=== PATIENT | female | born 1970 | race Caucasian/White ===

== ENCOUNTER 2017-03-01 08:23 | Day surgery (SDC) | payer OTHER ==
[2017-02-27 14:13] VITALS: BMI 20.6
--- NOTE | 2017-03-01 06:32 | P.GSHP ---
History of Present Illness H&P Date: 03/01/17 CHIEF COMPLAINT: History of gas bloat and hiatal hernia. HISTORY OF PRESENT ILLNESS: Lucila Saenz is a 46 year-old female who was last seen in 2014. She was actually set to get an upper and lower endoscopy, however she chickened out. She has a strong family history of colon cancer. She also reports gas bloat and constipation. She is actively smoking; however, she reports cutting down in moderate amounts. She also has Raynaud's in the fingertips as well secondary to poor circulation. ROS Additionally reports: GI: Gastroesophageal reflux disease. Reports chronic constipation. CONSTITUTIONAL: No fevers or chills. Weight unchanged. HEENT: Denies any trouble with vision, hearing or nosebleeds. No difficulty swallowing. LYMPHATIC: The patient denies any lumps and bumps around the neck. ENDOCRINE: Denies any thyroid disorders. Denies any blood sugar glucose intolerance. RESPIRATORY: Denies pneumonia. Has troubles with breathing or dyspnea on exertion. Asthma. CARDIOVASCULAR: Denies any chest pain, palpitations, or recent heart attacks. GENITOURINARY: Denies any blood in urine or increased urinary frequency. MUSCULOSKELETAL: Denies any back pain, stiffness or joint arthritis. NEUROLOGIC: Denies any numbness or tingling along the distal extremities. No seizure disorders or headaches. PSYCHIATRIC: Denies any depression or suicidal ideation. HEMATOLOGIC: Denies any abnormal bleeding or bruising. BREASTS: Denies any breast lumps, pain or nipple discharge. Physical Exam Patient is a 46-year-old female. GENERAL: Well developed and in no acute distress. Pleasant. HEENT: No sclera icterus. Extraocular movements grossly intact. Moist buccal mucosa. Head is atraumatic, normocephalic. Hears conversational speech. No nasal drainage. NECK: Supple without lymphadenopathy. No JV distention. CHEST: Non-labored respirations and equal bilateral excursions. CARDIOVASCULAR: Regular rate and rhythm. Palpable 2+ radial pulses. ABDOMEN: Soft, distended. Nontender. MUSCULOSKELETAL: No clubbing, cyanosis or edema. NEUROLOGIC: No focal or lateralizing signs. PSYCH: Appropriate affect. Alert and oriented to person, place and time. Assessment / Plan ASSESSMENT: 1. History of gas bloat. 2. Hiatal hernia. 3. Gastroesophageal reflux disease. 4. Family history of colon cancer. PLAN: 1. I have recommended proceeding with an upper and lower endoscopy as she reports hiatal hernia and has family history of colon cancer, and changes in bowel habits. 2. I did go over tobacco cessation and counseling, as she has poor circulation with Raynaud's. Her increased inhalation will also increase her gas bloat as well. 3. I have recommended follow up upon completion of her studies. Past Medical History Past Medical History: COPD, GERD/Reflux, Hypertension Additional Past Medical History / Comment(s): "chronic pollution disease", hiatal hernia, raynauds syndrome, History of Any Multi-Drug Resistant Organisms: None Reported Past Surgical History: Orthopedic Surgery, Tubal Ligation Additional Past Surgical History / Comment(s): jorje and screws left leg Past Anesthesia/Blood Transfusion Reactions: No Reported Reaction Additional Past Anesthesia/Blood Transfusion Reaction / Comment(s): claustrophobia Smoking Status: Current every day smoker - Past Family History Father Family Medical History: Cancer Medications and Allergies Home Medications Medication Instructions Recorded Confirmed Type ALPRAZolam [Xanax] 0.5 mg PO BID PRN 02/27/17 02/27/17 History Albuterol Inhaler [Ventolin Hfa 2 puff INHALATION Q6HR PRN 02/27/17 02/27/17 History Inhaler] Albuterol Nebulized [Ventolin 2.5 mg INHALATION TID PRN 02/27/17 02/27/17 History Nebulized] Beclomethasone Dipropionate [Qvar 1 puff INHALATION BID 02/27/17 02/27/17 History 80 mcg] Cetirizine HCl [Zyrtec] 10 mg PO DAILY 02/27/17 02/27/17 History Cholecalciferol [Vitamin D3] 1,000 unit PO DAILY 02/27/17 02/27/17 History Citalopram Hydrobromide [CeleXA] 20 mg PO BID 02/27/17 02/27/17 History Naproxen [Naprosyn] 500 mg PO Q12HR PRN 02/27/17 02/27/17 History Nicotine Tube 4 mg IH DIRECTED PRN 02/27/17 02/27/17 History Omeprazole [PriLOSEC] 40 mg PO DAILY 02/27/17 02/27/17 History Potassium(Dose Unknown) 1 tab PO DAILY 02/27/17 02/27/17 History Salmeterol Xinafoate [Serevent 50 mcg IH BID MDD sob 02/27/17 02/27/17 History Diskus] Tiotropium [place] [Spiriva] 1 cap INHALATION DAILY 02/27/17 02/27/17 History amLODIPine [Norvasc] 5 mg PO DAILY 02/27/17 02/27/17 History traMADol HCL [Ultram] 50 mg PO Q12HR PRN 02/27/17 02/27/17 History traZODone HCL 100 mg PO HS 02/27/17 02/27/17 History Allergies Allergy/AdvReac Type Severity Reaction Status Date / Time No Known Allergies Allergy Verified 02/27/17 13:54
[~2017-03-01 08:23] MED LIST: LACTATED RINGERS 1,000 ML IV SCH
[2017-03-01] MEDS ORDERED: LIDOCAINE 1% 20 ML VIAL (10MG/ML) FOR IV START INTRADERMA ONE (09:12)
[2017-03-01 09:13] VITALS: TEMP 98.7
[2017-03-01] MEDS ORDERED: MIDAZOLAM 2 MG/2 ML VIAL ONE (09:20)
[2017-03-01] MEDS ORDERED: PROPOFOL 10 MG/ML 20 ML VIAL IV ONE (09:20)
[2017-03-01] MEDS ORDERED: fentaNYL (PF) 50 MCG/ML 2 ML AMP ONE (09:20)
--- NOTE | 2017-03-01 09:57 | P.PCN ---
Date of Procedure: 03/01/17 Preoperative Diagnosis: Postoperative Diagnosis: Procedure(s) Performed: Implants: Indications for Procedure: Operative Findings: Description of Procedure: PREOPERATIVE DIAGNOSIS: Gastroesophageal reflux disease. Epigastric abdominal pain. POSTOPERATIVE DIAGNOSIS: Esophagitis. Gastritis. Gastroesophageal reflux disease. Epigastric abdominal pain. Diaphragmatic hiatal hernia without obstruction. OPERATION: Esophagogastroduodenoscopy with biopsies along antrum and esophagus. SURGEON: Licha Olmstead MD ANESTHESIA: MAC. INDICATIONS: The patient is a 46-year-old female who presents with a history of reflux disease and epigastric abdominal pain. Benefits and risks of the procedure were described. Informed consent was obtained. DESCRIPTION: The patient was brought into the endoscopy suite and laid in the left lateral decubitus position. An Olympus gastroscope was passed along the posterior oropharynx down to the distal esophagus where the squamocolumnar junction was encountered at 41 cm from the incisors. The stomach was entered and no bile reflux was found. Additional findings are listed below. Biopsies with cold forceps were obtained of the antrum. The first through third portion of the duodenum was examined and unremarkable. Retroflexion of the scope confirmed Hill grade 3 lower esophageal valve. The squamocolumnar junction LA grade B erosive esophagitis. Moderate yeast was found throughout the entire length of the esophagus. The stomach was desufflated. The patient tolerated the procedure well. FINDINGS: Squamocolumnar junction 41 cm from the incisors. Diaphragmatic hiatus at 41 cm. Hill grade 3 lower esophageal valve. LA grade B erosive esophagitis. No active duodenitis. Yeast esophagitis. Chronic gastritis. RECOMMENDATIONS: Further recommendations pending results of pathology report. Upper endoscopy as needed.
--- NOTE | 2017-03-01 10:04 | P.PCN ---
Date of Procedure: 03/01/17 Preoperative Diagnosis: Postoperative Diagnosis: Procedure(s) Performed: Implants: Indications for Procedure: Operative Findings: Description of Procedure: PREOPERATIVE DIAGNOSIS: Colonoscopy screening, initial. POSTOPERATIVE DIAGNOSIS: Colonoscopy screening, initial. Diverticulosis, sigmoid colon. Tubular adenomas. External hemorrhoids. OPERATION: Colonoscopy to the ileocecal valve and appendiceal orifice. Colonoscopy with cold forceps biopsies. Colonoscopy with snare polypectomy. SURGEON: Licha Olmstead MD. ANESTHESIA: MAC. INDICATIONS: The patient is a 46-year-old female who presents for colonoscopy screening. Benefits and risks were described and informed consent was obtained. DESCRIPTION OF PROCEDURE: The patient had undergone Gatorade, MiraLAX and Dulcolax prep. She had been brought into the operating room and laid in the left lateral decubitus position. After adequate intravenous sedation, the rectum was examined with 2% lidocaine jelly. External hemorrhoids were encountered. The rectal tone was within normal limits. No lesions were palpated in the rectal vault. An Olympus colonoscope was advanced until the ileocecal valve and appendiceal orifice were clearly viewed. The prep was excellent with clear visualization of the mucosal folds. The scope was removed with visualization of each mucosal fold. Scattered diverticulosis was encountered. Tubular adenomas were found between 3 -4 mm treated with cold forceps biopsy as well as snare polypectomy at 30 cm and proximal including mid transverse colon. No evidence of focal colitis was found. Grade 3 internal hemorrhoids without active bleeding or inflammation were encountered. The colon was desufflated. The patient had tolerated the procedure well. Withdrawal time was over 6 minutes. FINDINGS: Internal hemorrhoids, grade 2. External prolapsed hemorrhoids. No arteriovenous malformations. Tubular adenomas were found between 3-4 mm treated with cold forceps biopsy as well as snare polypectomy at 30 cm and proximal including mid transverse colon. No focal colitis. RECOMMENDATIONS: Lower endoscopy in 3 years (2019) per screening guidelines. Plan - Discharge Summary New Discharge Prescriptions: New Fluconazole 200 mg PO DAILY #14 tab No Action traZODone HCL 100 mg PO HS traMADol HCL [Ultram] 50 mg PO Q12HR PRN PRN Reason: Pain Cetirizine HCl [Zyrtec] 10 mg PO DAILY Omeprazole [PriLOSEC] 40 mg PO DAILY Albuterol Nebulized [Ventolin Nebulized] 2.5 mg INHALATION TID PRN PRN Reason: sob Citalopram Hydrobromide [CeleXA] 20 mg PO BID amLODIPine [Norvasc] 5 mg PO DAILY Naproxen [Naprosyn] 500 mg PO Q12HR PRN PRN Reason: Pain Tiotropium [place] [Spiriva] 1 cap INHALATION DAILY Salmeterol Xinafoate [Serevent Diskus] 50 mcg IH BID MDD sob Cholecalciferol [Vitamin D3] 1,000 unit PO DAILY Beclomethasone Dipropionate [Qvar 80 mcg] 1 puff INHALATION BID Albuterol Inhaler [Ventolin Hfa Inhaler] 2 puff INHALATION Q6HR PRN PRN Reason: sob Potassium(Dose Unknown) 1 tab PO DAILY Nicotine Tube 4 mg IH DIRECTED PRN PRN Reason: Nicotine Cravings ALPRAZolam [Xanax] 0.5 mg PO BID PRN PRN Reason: Anxiety Discharge Medication List ALPRAZolam [Xanax] 0.5 mg PO BID PRN 02/27/17 [History] Albuterol Inhaler [Ventolin Hfa Inhaler] 2 puff INHALATION Q6HR PRN 02/27/17 [ History] Albuterol Nebulized [Ventolin Nebulized] 2.5 mg INHALATION TID PRN 02/27/17 [ History] Beclomethasone Dipropionate [Qvar 80 mcg] 1 puff INHALATION BID 02/27/17 [ History] Cetirizine HCl [Zyrtec] 10 mg PO DAILY 02/27/17 [History] Cholecalciferol [Vitamin D3] 1,000 unit PO DAILY 02/27/17 [History] Citalopram Hydrobromide [CeleXA] 20 mg PO BID 02/27/17 [History] Naproxen [Naprosyn] 500 mg PO Q12HR PRN 02/27/17 [History] Nicotine Tube 4 mg IH DIRECTED PRN 02/27/17 [History] Omeprazole [PriLOSEC] 40 mg PO DAILY 02/27/17 [History] Potassium(Dose Unknown) 1 tab PO DAILY 02/27/17 [History] Salmeterol Xinafoate [Serevent Diskus] 50 mcg IH BID MDD sob 02/27/17 [History] Tiotropium [place] [Spiriva] 1 cap INHALATION DAILY 02/27/17 [History] amLODIPine [Norvasc] 5 mg PO DAILY 02/27/17 [History] traMADol HCL [Ultram] 50 mg PO Q12HR PRN 02/27/17 [History] traZODone HCL 100 mg PO HS 02/27/17 [History] Fluconazole 200 mg PO DAILY #14 tab 03/01/17 [Rx] Follow up Appointment(s)/Referral(s): Licha Olmstead MD [STAFF PHYSICIAN] - 03/21/17 Patient Instructions/Handouts: Colorectal Polyps (GEN), Diverticulosis Diet ( GEN), Diverticulosis (GEN), Hemorrhoids (GEN) Activity/Diet/Wound Care/Special Instructions: Repeat colonoscopy 3 years, 2019. Discharge Disposition: HOME SELF-CARE
[2017-03-01 10:06] VITALS: RESP 16
[2017-03-01 10:35] VITALS: BP 131/88; PULSE 65
== END 2017-03-01 10:42 | disposition home or self-care (01) ==
LOC: ORWHC2ENDO 08:23
PROVIDERS: ATTEND Surgery Plastic and Reconstructive Surgery
DX: K44.9 Diaphragmatic hernia without obstruction or gangrene (principal); K21.0 Gastro-esophageal reflux disease with esophagitis; B37.81 Candidal esophagitis; K22.10 Ulcer of esophagus without bleeding; K63.5 Polyp of colon; K57.30 Diverticulosis of large intestine without perforation or abscess without bleeding; K64.2 Third degree hemorrhoids; K64.8 Other hemorrhoids; Z80.0 Family history of malignant neoplasm of digestive organs; K29.50 Unspecified chronic gastritis without bleeding; F17.200 Nicotine dependence, unspecified, uncomplicated; I73.00 Raynaud's syndrome without gangrene; J44.9 Chronic obstructive pulmonary disease, unspecified; I10 Essential (primary) hypertension; F32.9 Major depressive disorder, single episode, unspecified; F41.9 Anxiety disorder, unspecified; Z79.51 Long term (current) use of inhaled steroids; Z79.899 Other long term (current) drug therapy
CPT/HCPCS: 88305; 88342; 45380; 45385; 43239; J2250; J3010; J2704

== ENCOUNTER 2018-03-07 10:15 | Inpatient (IN) | payer OTHER ==
[2018-03-07] MEDS ORDERED: SODIUM CHLORIDE 0.9% 1,000 ML IV STA (11:09)
[2018-03-07] MEDS ORDERED: ONDANSETRON 4 MG/2 ML VIAL IVP STA (11:09)
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
--- NOTE | 2018-03-07 11:47 | XR ---
EXAMINATION TYPE: XR KUB DATE OF EXAM: 03/07/2018 COMPARISON: NONE HISTORY: Pain TECHNIQUE: Single supine KUB image of the abdomen is obtained FINDINGS: Small bowel demonstrates no evidence for dilatation or air fluid levels. Gas and fecal material is seen in non-distended colon. No convincing evidence for pneumoperitoneum. No unusual calcifications. The lung bases are clear. The osseous structures are intact. IMPRESSION: 1. Overall nonobstructive bowel gas pattern.
--- NOTE | 2018-03-07 11:47 | XR ---
EXAMINATION TYPE: XR chest 2V DATE OF EXAM: 03/07/2018 COMPARISON: NONE HISTORY: Chest pain TECHNIQUE: Frontal and lateral views of the chest are obtained. FINDINGS: There is no focal air space opacity. No evidence for pneumothorax. No pleural effusion. The cardiac silhouette size is within normal limits. The osseous structures are grossly intact. IMPRESSION: 1. No acute cardiopulmonary process.
[2018-03-07 12:23] LABS: ALT 51 U/L (9-52); AST 65 U/L (14-36); Albumin 4.9 g/dL (3.5-5.0); Alkaline Phosphatase 104 U/L (38-126); Amylase 51 U/L (30-110); Anion Gap 15 mmol/L; Blood Urea Nitrogen 9 mg/dL (7-17); Calcium 10.4 mg/dL (8.4-10.2); Carbon Dioxide 24 mmol/L (22-30); Chloride 87 mmol/L (98-107); Glucose 114 mg/dL (74-99); Lipase 73 U/L (23-300); Potassium 4.5 mmol/L (3.5-5.1); Sodium 126 mmol/L (137-145); Total Bilirubin 1.6 mg/dL (0.2-1.3); Total Protein 8.1 g/dL (6.3-8.2)
[2018-03-07 12:32] LABS: Basophils % (A) 0 %; Eosinophils # (A) 0.1 k/uL (0-0.7); Eosinophils % (A) 1 %; HCT 54.3 % (34.0-46.0); HGB 18.5 gm/dL (11.4-16.0); Lymphocytes # (A) 1.2 k/uL (1.0-4.8); Lymphocytes % (A) 12 %; MCV 94.1 fL (80.0-100.0); Mean Platelet Volume 7.8; Monocytes # (A) 0.7 k/uL (0-1.0); Monocytes % (A) 6 %; Neutrophils # (A) 8.5 k/uL (1.3-7.7); Neutrophils % (A) 80 %; Platelet Count 243 k/uL (150-450); RBC 5.77 m/uL (3.80-5.40); RDW 12.6 % (11.5-15.5); WBC 10.6 k/uL (3.8-10.6)
[2018-03-07 12:36] LABS: Appearance,Urine Cloudy (Clear); Bilirubin,Urine Negative (Negative); Blood,Urine Negative (Negative); Color,Urine Yellow; Glucose,Urine (UA) Negative (Negative); Hyaline Casts,Urine 1 /lpf (0-2); Ketones,Urine Negative (Negative); Leukocyte Esterase,Urine Small (Negative); Mucus,Urine Rare /hpf; Nitrite,Urine Negative (Negative); PH, Urine 7.5 (5.0-8.0); Protein,Urine 2+ (Negative); RBC,Urine 1 /hpf (0-5); Specific Gravity,Urine 1.011 (1.001-1.035); Squamous Epithelial Cell,Urine 2 /hpf (0-4); WBC,Urine 4 /hpf (0-5)
[2018-03-07 13:04] LABS: INR 1.1 (<1.2); Partial Thromboplastin Time 23.9 sec (22.0-30.0); Prothrombin Time 10.4 sec (9.0-12.0)
[2018-03-07 13:08] LABS: Creatine Kinase MB 12.4 ng/mL (0.0-2.4); Troponin I 2.31 ng/mL (0.000-0.034)
[2018-03-07] MEDS ORDERED: ASPIRIN 325 MG TAB PO STA (13:11)
[2018-03-07] MEDS ORDERED: HEPARIN SODIUM,PORCINE 5,000 UNIT/ML 1 ML VIAL IV ONE (13:11)
[2018-03-07] MEDS ORDERED: HEPARIN SODIUM,PORCINE 5,000 UNIT/ML 1 ML VIAL IV PRN (13:11)
[2018-03-07] MEDS ORDERED: HEPARIN SOD,PORK IN 0.45% NACL 25,000 UNIT in 0.45% NACL 1 500ML.BAG IV SCH (13:15)
[2018-03-07] MEDS ORDERED: MORPHINE SULFATE 4 MG/ML SYRINGE IV PRN (13:32)
[2018-03-07] MEDS ORDERED: NALOXONE 0.4 MG/ML 1 ML VIAL IV PRN (13:32)
[2018-03-07] MEDS ORDERED: LORazepam 2 MG/ML INJ IV PRN ×3 (13:47)
[2018-03-07] MEDS ORDERED: THIAMINE 100 MG/ML 2 ML VIAL IM STA (13:47)
[2018-03-07] MEDS ORDERED: SODIUM CHLORIDE 0.9% 500 ML IV ONE (14:29)
[2018-03-07] MEDS ORDERED: NITROGLYCERIN-D5W PMX 50 MG in DEXTROSE/WATER 1 250ML.BAG IV SCH (14:30)
[2018-03-07] MEDS: SODIUM CHLORIDE 0.9% 1,000 ML IV SCH ×2 (16:03→17:20)
[2018-03-07] MEDS ORDERED: LIDOCAINE 1% INJ 10MG/ML (20 ML MDV) ONE (17:06)
[2018-03-07] MEDS ORDERED: MIDAZOLAM 2 MG/2 ML VIAL ONE (17:06)
[2018-03-07] MEDS ORDERED: LIDOCAINE 1% (PF) 10MG/ML VIAL SQ ONE (17:32)
[2018-03-07] MEDS ORDERED: MIDAZOLAM 2 MG/2 ML VIAL IVP ONE (17:33)
[2018-03-07] MEDS ORDERED: BIVALIRUDIN 250 MG in SODIUM CHLORIDE 0.9% 50 ML IV ONE (17:48)
[2018-03-07] MEDS ORDERED: BIVALIRUDIN BOLUS 250 MG/50 ML IV ONE (17:48)
[2018-03-07] MEDS: NITROGLYCERIN 1000MCG/10ML SYRINGE INTRACORON ONE ×3 (17:58→18:17)
[2018-03-07] MEDS ORDERED: IOPAMIDOL-370 125ML BTL INJ ONE (18:04)
[2018-03-07] MEDS ORDERED: CLOPIDOGREL 75 MG TAB ONE (18:16)
[2018-03-07] MEDS ORDERED: CLOPIDOGREL 75 MG TAB PO ONE (18:23)
[2018-03-07] MEDS ORDERED: IOPAMIDOL-370 100ML BTL INJ ONE (18:34)
[2018-03-07] MEDS ORDERED: ZOLPIDEM 5 MG TAB PO PRN (18:49)
[2018-03-07] MEDS ORDERED: ATROPINE SULFATE 0.1 MG/ML 10ML SYRINGE IV PRN (18:49)
[2018-03-07] MEDS ORDERED: MAG HYDROX/AL HYDROX/SIMETH 30 ML CUP PO PRN (18:49)
[2018-03-07] MEDS ORDERED: RX INFO: IV CONTRAST WAS GIVEN 1 EACH MISC MISCELLANE PRN (18:49)
[2018-03-07] MEDS ORDERED: NITROGLYCERIN SL TABS 0.4 MG TAB SUBLINGUAL PRN (18:49)
[2018-03-07] MEDS ORDERED: SODIUM CHLORIDE 0.9% 1,000 ML IV SCH (19:00)
[2018-03-07 20:35] LABS: Creatine Kinase MB 11.5 ng/mL (0.0-2.4); Troponin I 3.21 ng/mL (0.000-0.034)
[2018-03-07] MEDS: ATORVASTATIN 80 MG TAB PO SCH (21:52)
[2018-03-07] MEDS: METOPROLOL TARTRATE 25 MG TAB PO SCH (21:52)
[2018-03-07 23:12] LABS: Troponin I 3.39 ng/mL (0.000-0.034)
--- NOTE | 2018-03-07 23:39 | CC ---
CARDIAC CATHETERIZATION REPORT DATE OF SERVICE: 03/07/2018 PERFORMING PHYSICIAN: Michael Lu MD, reference data expert. PROCEDURES PERFORMED: 1. Selective right and left coronary angiogram. 2. Left heart catheterization. 3. Successful stenting of obtuse marginal 1 of the left circumflex using proximally 2.5 x 18 mm Xience SANAM, in the mid portion 2.25 x 15 and 2.25 x 8 mm Xience SANAM with good angiographic results and reduction of stenosis from 100% to 0%. 4. INDICATION: This is a pleasant 47-year-old female patient with history of hypertension and significant history of smoking, who presented to the emergency room complaining of epigastric discomfort felt in the beginning to be related to reflux disease. The patient was ruled in for acute non-ST elevation myocardial infarction. The decision was made toward heart catheterization and percutaneous coronary intervention. APPROACH: Right common femoral artery. COMPLICATION: None. LEVEL OF SEDATION: Moderate with sedation length of 56 minutes. PROCEDURE DESCRIPTION: After obtaining an informed consent, the patient was brought to cardiac recyclable materials distributor. The right common femoral artery was cannulated using micropuncture technique and a micropuncture wire passed easily. Then I placed a 6-Brazilian sheath in the right common femoral artery. I did after that selective right and left coronary angiogram using JR4 and JL4 catheters. Left heart catheterization was performed using the JR4 catheter which flipped into the LV, then I did pullback across the aortic valve. The diagnostic procedure was completed at that point. After that, I did intervene on the left circumflex. Please see a separate paragraph for that. SELECTIVE CORONARY ANGIOGRAM: 1. The RCA is a large caliber vessel and it is a dominant vessel. The RCA has mild disease only. Distally bifurcates into PDA and PLV branches. Both are angiographically normal. 2. The left main is angiographically normal. It bifurcates into left circumflex and left anterior descending artery. 3. The left circumflex is a large caliber vessel. It is a nondominant vessel. The proximal circ gives rise into a very high takeoff 1st OM branch which is occluded by the ostium. The left circumflex in the mid and distal portion appeared to have mild disease only. 4. The LAD: The LAD has mild disease only. HEMODYNAMICS: The left ventricular end-diastolic pressure was about 12 mmHg and no gradient was identified across aortic valve. percutaneous intervention of the left. CIRCUMFLEX/PERCUTANEOUS INTERVENTION OF THE OBTUSE MARGINAL 1: Anticoagulation was initiated using Angiomax. Subsequently I did take JL4 guide and the left main was engaged. I did cross acute total occlusion at the ostial of OM1 using a Whisper wire and I did advance the wire all the way to the distal OM1. I did initially do balloon angioplasty using 1.5 mm balloon. After that, I did wire the OM1 using another wire with a run-through wire as a ben wire to straighten the tortuosity in the OM1. After that, I did deploy in the ostial/proximal OM1 2.5 x 18 mm Xience SANAM, where the stent was positioned under fluoroscopy guidance and deployed under its nominal pressure. There was another lesion in the mid portion of OM1, which seems to be tight, and I decided to cover that lesion with a stent, so I took 2.25 x 15 mm Xience SANAM and I did position the stent under fluoroscopy guidance and deployed under its nominal pressure. There was an area left between the 2 stents in the proximal and mid and it was quite concerning and I decided to cover that lesion using 8 mm stent, so I took 2.25 x 8 mm Xience and the stent was positioned under fluoroscopy guidance and deployed under its nominal pressure. The final angiogram showed good angiographic results with reduction of stenosis from 100% to 0% with JOIE-3 flow. CONCLUSION: 1. Acute coronary syndrome. 2. Acute/subacute total occlusion of OM1 off the left circumflex. 3. Successful stenting of obtuse marginal 1 of left circumflex using 3 drug-eluting stent with good angiographic results and without any complication. POSTPROCEDURE MANAGEMENT: 1. Dual anti-platelet therapy. 2. Risk factor modifications. 3. Follow up with the patient. MMODL / IJN: [id number] /
--- NOTE | 2018-03-07 23:54 | CONS ---
CONSULTATION DATE OF SERVICE: 03/07/2018 Reason for the consultation is epigastric discomfort. HISTORY OF PRESENT ILLNESS: This is a pleasant 47-year-old female patient with a past medical history significant for hypertension, as well as chronic obstructive pulmonary disease who presented to the emergency room earlier today complaining of epigastric discomfort. The patient was in her usual state of health until yesterday when she started experiencing discomfort mainly in the epigastric area with some radiation to the back. The discomfort was a sharp kind of discomfort. No associated symptoms of shortness of breath, but she did have nausea associated with discomfort. Yesterday she did not seek any medical attention, but the discomfort today got worse and she decided to come to the emergency room. In the emergency room, the patient did have a cardiac workup. The EKG showed sinus rhythm with nonspecific changes in the inferior leads and T-wave inversion in the inferolateral leads, as well as Q-wave inferiorly. The cardiac enzymes were checked and came in to be abnormal. The patient was ruled out for acute non-ST elevation myocardial infarction. When the patient was seen in the emergency room, she was complaining of very mild chest discomfort and she was on heparin IV. Because of that, I did recommend proceeding with a heart catheterization. The patient did undergo a heart catheterization and that revealed occluded first obtuse marginal branch of the left circumflex, which was working as ramus intermedius from the ostium. She underwent successful stenting of the first obtuse marginal branch of the left circumflex using three drug-eluting stent with good angiographic results and without any complication from a procedure was performed from the right groin. By the end of the procedure, the patient was completely pain-free. PAST MEDICAL HISTORY: Includes: 1. Hypertension. 2. Chronic obstructive pulmonary disease. PAST SURGICAL HISTORY: There is no major cardiovascular surgery in the past. She did undergo tubal ligation in the past. SOCIAL HISTORY: The patient does smoke about 1 pack of cigarette every day for more than 20 years. She does not drink alcohol. FAMILY HISTORY: Family history is not relevant. CURRENT MEDICATIONS: At home include the followin. Bronchodilators inhalers. 2. Amlodipine 5 mg p.o. daily. 3. Omeprazole 40 mg p.o. daily. 4. Citalopram 20 mg daily. 5. Albuterol inhaler q.i.d. PHYSICAL EXAMINATION: GENERAL APPEARANCE: The patient was not looking in any pain or any distress. VITALS: Showed temp of 97.9, heart rate 88, respiratory rate is 18 per minute, blood pressure is 115/76 mmHg. Cardiovascular examination shows regular rate and rhythm with normal S1 and S2. Respiratory examination shows clear breathing sounds bilaterally. Abdomen is soft and nontender. EXTREMITY EXAMINATION: No pedal edema. VASCULAR EXAMINATION: There is no right radial pulse, but she does have good right femoral pulse. DIAGNOSTIC WORKUP: The EKG was as described above. It did show sinus rhythm with nonspecific changes inferiorly and Q-wave inferiorly, as well as T-wave inversion in the inferolateral leads. WBC is 10.6, hemoglobin 18.5. Troponin is 2.310. Sodium is 126, potassium is 4.5, BUN is 9, creatinine 0.67. ASSESSMENT: 1. Acute coronary syndrome. 2. Status post percutaneous coronary intervention of the first obtuse marginal branch of the left circumflex. 3. Hypertension. 4. Significant history of smoking. PLAN: 1. Dual anti-platelet therapy. 2. High-intensity statin. 3. Anti-ischemic medication including metoprolol. 4. An echocardiogram with Doppler to evaluate the left ventricular systolic function. 5. Smoking cessation was discussed with the patient. 6. Follow up with the patient. Thank you for allowing us to participate in her care and we will continue following up with her. SARAH / KAVONN: [id number] /
[2018-03-08 06:23] LABS: Basophils # (A) 0.1 k/uL (0-0.2); Basophils % (A) 1 %; Eosinophils # (A) 0.1 k/uL (0-0.7); Eosinophils % (A) 1 %; HCT 46.8 % (34.0-46.0); HGB 15.7 gm/dL (11.4-16.0); Lymphocytes % (A) 19 %; MCH 32.4 pg (25.0-35.0); MCHC 33.6 g/dL (31.0-37.0); MCV 96.5 fL (80.0-100.0); Mean Platelet Volume 7.4; Monocytes # (A) 0.7 k/uL (0-1.0); Monocytes % (A) 7 %; Neutrophils # (A) 7.4 k/uL (1.3-7.7); Neutrophils % (A) 71 %; Platelet Count 198 k/uL (150-450); RBC 4.85 m/uL (3.80-5.40); RDW 12.6 % (11.5-15.5); WBC 10.4 k/uL (3.8-10.6)
[2018-03-08 06:34] LABS: ALT 40 U/L (9-52); AST 47 U/L (14-36); Albumin 3.4 g/dL (3.5-5.0); Alkaline Phosphatase 63 U/L (38-126); Anion Gap 6 mmol/L; Blood Urea Nitrogen 12 mg/dL (7-17); Calcium 9.1 mg/dL (8.4-10.2); Carbon Dioxide 27 mmol/L (22-30); Chloride 100 mmol/L (98-107); Glucose 85 mg/dL (74-99); Potassium 4.1 mmol/L (3.5-5.1); Sodium 133 mmol/L (137-145); Total Bilirubin 0.6 mg/dL (0.2-1.3); Total Protein 5.9 g/dL (6.3-8.2)
[2018-03-08] MEDS: THIAMINE 100 MG TAB PO SCH ×3 (06:50→16:18)
[2018-03-08] MEDS: METOPROLOL TARTRATE 25 MG TAB PO SCH ×2 (08:45→20:04)
[2018-03-08] MEDS: ASPIRIN 325 MG TAB PO SCH (08:45)
[2018-03-08] MEDS ORDERED: CLOPIDOGREL 75 MG TAB PO SCH (09:00)
[2018-03-08 11:05] VITALS: BMI 21.2
--- NOTE | 2018-03-08 11:05 | ECHOF ---
Referral Reason:nstemi MEASUREMENTS -------- HEIGHT: 165.1 cm WEIGHT: 59.0 kg BP: 85/61 IVSd: 1.3 cm (0.6 - 1.1) LVIDd: 3.5 cm (3.9 - 5.3) LVPWd: 1.2 cm (0.6 - 1.1) IVSs: 1.6 cm LVIDs: 2.8 cm LVPWs: 1.3 cm LA Diam: 2.0 cm (2.7 - 3.8) Ao Diam: 3.4 cm (2.0 - 3.7) AV Cusp: 2.1 cm (1.5 - 2.6) LA Diam: 2.5 cm (2.7 - 3.8) MV EXCURSION: 16.095 mm (> 18.000) MV EF SLOPE: 63 mm/s (70 - 150) EPSS: 0.2 cm MV E John: 0.38 m/s MV DecT: 198 ms MV A John: 0.48 m/s MV E/A Ratio: 0.78 RAP: 5.00 mmHg RVSP: 12.99 mmHg FINDINGS -------- Sinus rhythm. This was a techncally difficult study with suboptimal views, , Lumason utilized for enhancement of im ages. The left ventricular size is normal. There is mild concentric left ventricular hypertrophy. Overa ll left ventricular systolic function is mild-moderately impaired with, an EF between 40 - 45 %. In ferior Hypokinesis Posterior Hypokinesis. The right ventricle is normal in size. The left atrial size is normal. The right atrial size is normal. 5.0mg OF Lumason UTLIZED: 2 OR MORE WALL SEGMENTS NOT VISUALIZED. The aortic valve is trileaflet, and appears structurally normal. No aortic stenosis or regurgitation. Mild mitral annular calcification present. Mild mitral regurgitation is present. Mild tricuspid regurgitation present. There is no evidence of pulmonary hypertension. The right v entricular systolic pressure, as measured by Doppler, is 12.99mmHg. There is no pulmonic regurgitation present. The aortic root size is normal. There is no pericardial effusion. CONCLUSIONS -------- 1. This was a techncally difficult study with suboptimal views, , Lumason utilized for enhancement of images. 2. The left ventricular size is normal. 3. There is mild concentric left ventricular hypertrophy. 4. Overall left ventricular systolic function is mild-moderately impaired with, an EF between 40 - 45 %. 5. Inferior Hypokinesis 6. Posterior Hypokinesis. 7. The right ventricle is normal in size. 8. The left atrial size is normal. 9. The right atrial size is normal. 10. 5.0mg OF Lumason UTLIZED: 2 OR MORE WALL SEGMENTS NOT VISUALIZED. 11. The aortic valve is trileaflet, and appears structurally normal. No aortic stenosis or regurgitat ion. 12. Mild mitral annular calcification present. 13. Mild mitral regurgitation is present. 14. Mild tricuspid regurgitation present. 15. There is no evidence of pulmonary hypertension. 16. The right ventricular systolic pressure, as measured by Doppler, is 12.99mmHg. 17. There is no pulmonic regurgitation present. 18. The aortic root size is normal. 19. There is no pericardial effusion. COMPRESSION MOLDING MACHINE SETTER: Stella Greenfield RDCS
--- NOTE | 2018-03-08 12:44 | P.PN ---
Subjective Progress Note Date: 03/08/18 Principal diagnosis: NSTEMI Summary pleasant 47-year-old female patient with past medical history significant for hypertension, COPD and smoking. Presented to the emergency department complaining of epigastric discomfort that started the day prior. EKG showed sinus rhythm with nonspecific changes in the inferior leads and T- wave inversion in the inferolateral leads as well as Q waves inferiorly. Cardiac enzymes came back to be elevated with a troponin of 2.310, 3.210 and 3.390. She was recommended to undergo cardiac catheterization which revealed occluded first obtuse marginal branch of the left circumflex for which she underwent successful stenting of the first obtuse marginal branch of left circumflex using 3 drug-eluting stents. He underwent echocardiogram with Doppler study which revealed mild to moderately impaired LV systolic function with an ejection fraction between 40-45%, inferior and posterior hypokinesis as well as mild mitral regurgitation and mild tricuspid regurgitation. She is currently on aspirin 325 mg by mouth daily, Lipitor 80 mg by mouth daily at bedtime, Plavix 75 mg by mouth daily and metoprolol tartrate 25 mg by mouth twice a day. Her blood pressure is running on the low side with readings of 85/ 61, 106/67 and 93/68. Her heart rate is in the 70s. Upon examination, patient is resting comfortably in bed. She denies complaints of chest or epigastric discomfort. She's only been up to the bathroom but has done this without difficulties. She is anxious to be discharged home. Objective - Vital Signs Vital signs: Vital Signs Temp 96.6 F L 03/08/18 08:48 Pulse 76 03/08/18 08:49 Resp 16 03/08/18 08:49 BP 93/68 03/08/18 08:48 Pulse Ox 94 L 03/08/18 08:48 Intake & Output 03/07/18 03/08/18 03/08/18 18:59 06:59 18:59 Intake Total 166 250 120 Output Total 600 Balance -434 250 120 Weight 58.967 kg 57.7 kg 57.7 kg Intake: IV 116 Intake, IV Titration 50 250 Amount Bivalirudin 250 mg In 50 Sodium Chloride 0.9% 50 ml @ 0 mls/hr IV .[facility] Rx#:[id number] Sodium Chloride 0.9% 1, 250 000 ml @ 100 mls/hr IV . Q10H [facility] Rx#:[id number] Oral 120 Output: Urine 600 Other: Voiding Method Toilet # Voids 1 1 - Exam PHYSICAL EXAMINATION: HEENT: Head is atraumatic, normocephalic. Pupils equal, round. Neck is supple. There is no elevated jugular venous pressure. HEART EXAMINATION: Heart sounds regular, S1 and S2 normal. No murmur or gallop heard. CHEST EXAMINATION: Lungs reveal diminished air entry bilaterally. No chest wall tenderness is noted on palpation or with deep breathing. ABDOMEN: Soft, nontender. Bowel sounds are heard. No organomegaly noted. EXTREMITIES: Diminished peripheral pulses with no evidence of peripheral edema and no calf tenderness noted. Right femoral puncture site soft with ecchymosis but no signs of hematoma. NEUROLOGIC patient is awake, alert and oriented x3. . - Labs CBC & Chem 7: 03/08/18 05:44 03/08/18 05:44 Labs: Abnormal Lab Results - Last 24 Hours (Table) 03/07/18 03/07/18 03/07/18 Range/Units 10:58 10:58 10:58 RBC 5.77 H (3.80-5.40) m/uL Hgb 18.5 H (11.4-16.0) gm/dL Hct 54.3 H (34.0-46.0) % Neutrophils # 8.5 H (1.3-7.7) k/uL Sodium 126 L (137-145) mmol/L Chloride 87 L (98-107) mmol/L Glucose 114 H (74-99) mg/dL Calcium 10.4 H (8.4-10.2) mg/dL Total Bilirubin 1.6 H (0.2-1.3) mg/dL AST 65 H (14-36) U/L Total Creatine Kinase 249 H (30-135) U/L CK-MB (CK-2) 12.4 H* (0.0-2.4) ng/mL Troponin I 2.310 H* (0.000-0.034) ng/mL Total Protein (6.3-8.2) g/dL Albumin (3.5-5.0) g/dL Urine Appearance (Clear) Urine Protein (Negative) Ur Leukocyte Esterase (Negative) Urine Mucus (None) /hpf 03/07/18 03/07/18 03/07/18 Range/Units 11:59 19:43 22:16 RBC (3.80-5.40) m/uL Hgb (11.4-16.0) gm/dL Hct (34.0-46.0) % Neutrophils # (1.3-7.7) k/uL Sodium (137-145) mmol/L Chloride (98-107) mmol/L Glucose (74-99) mg/dL Calcium (8.4-10.2) mg/dL Total Bilirubin (0.2-1.3) mg/dL AST (14-36) U/L Total Creatine Kinase 277 H 259 H (30-135) U/L CK-MB (CK-2) 11.5 H* 12.0 H* (0.0-2.4) ng/mL Troponin I 3.210 H* 3.390 H* (0.000-0.034) ng/mL Total Protein (6.3-8.2) g/dL Albumin (3.5-5.0) g/dL Urine Appearance Cloudy H (Clear) Urine Protein 2+ H (Negative) Ur Leukocyte Esterase Small H (Negative) Urine Mucus Rare H (None) /hpf 03/08/18 03/08/18 Range/Units 05:44 05:44 RBC (3.80-5.40) m/uL Hgb (11.4-16.0) gm/dL Hct 46.8 H (34.0-46.0) % Neutrophils # (1.3-7.7) k/uL Sodium 133 L (137-145) mmol/L Chloride (98-107) mmol/L Glucose (74-99) mg/dL Calcium (8.4-10.2) mg/dL Total Bilirubin (0.2-1.3) mg/dL AST 47 H (14-36) U/L Total Creatine Kinase (30-135) U/L CK-MB (CK-2) (0.0-2.4) ng/mL Troponin I (0.000-0.034) ng/mL Total Protein 5.9 L (6.3-8.2) g/dL Albumin 3.4 L (3.5-5.0) g/dL Urine Appearance (Clear) Urine Protein (Negative) Ur Leukocyte Esterase (Negative) Urine Mucus (None) /hpf Assessment and Plan Assessment: #1 non-ST elevation OR #2 status post percutaneous coronary intervention of the first obtuse marginal branch of the left circumflex #3 hypertension #4 significant smoking history #5 ischemic cardiomyopathy with an ejection fraction of 40-45% and inferior hypokinesis as well as posterior hypokinesis Plan: From cardiology's perspective, continue dual antiplatelet therapy and high intensity statin. Continue beta marly and we will add SARAH inhibitor. Continue to monitor the patient provide further recommendations accordingly. SUPPLEMENTAL MANAGER note has been reviewed, I agree with a documented findings and plan of care. Patient was seen and examined.
--- NOTE | 2018-03-08 13:24 | P.HPIM ---
History of Present Illness Patient given with epigastric abdominal pain had with highly elevated troponins patient is found to have non-ST elevation myocardial infarction, underwent cardiac catheterization and stenting of circumflex. Patient had mild depressed ejection fraction echocardiogram that wasn't post cardiac catheterization with 40-40% ejection fraction probably acute systolic dysfunction from a myocardial stunning. Patient is presently doing well mildly hypotensive amlodipine will be discontinued. Patient was started on SARAH inhibitor continue with beta marly and statin dual antiplatelet therapy at this time. Review of Systems REVIEW OF SYSTEMS: CONSTITUTIONAL: No fever, no malaise, no fatigue. HEENT: No recent visual problems or hearing problems. Denied any sore throat. CARDIOVASCULAR: No chest pain, orthopnea, PND, no palpitations, no syncope. PULMONARY: No shortness of breath, no cough, no hemoptysis. GASTROINTESTINAL: No diarrhea, no nausea, no vomiting, no abdominal pain. Normoactive bowel sounds. NEUROLOGICAL: No headaches, no weakness, no numbness. HEMATOLOGICAL: Denies any bleeding or petechiae. GENITOURINARY: Denies any burning micturition, frequency, or urgency. MUSCULOSKELETAL/RHEUMATOLOGICAL: Denies any joint pain, swelling, or any muscle pain. ENDOCRINE: Denies any polyuria or polydipsia. The rest of the 14-point review of systems is negative. Past Medical History Past Medical History: COPD, GERD/Reflux, Hypertension Additional Past Medical History / Comment(s): hiatal hernia, raynauds syndrome, past broken lt leg(has jorje and screws), past spontaneous pneumthorax/chest tube at [facility] History of Any Multi-Drug Resistant Organisms: None Reported Past Surgical History: Orthopedic Surgery, Tubal Ligation Additional Past Surgical History / Comment(s): jorje and screws left leg, egd w/ bx Past Anesthesia/Blood Transfusion Reactions: Motion Sickness Additional Past Anesthesia/Blood Transfusion Reaction / Comment(s): claustrophobia Smoking Status: Current every day smoker - Past Family History Father Family Medical History: Cancer Medications and Allergies Home Medications Medication Instructions Recorded Confirmed Type Albuterol Inhaler [Ventolin Hfa 2 puff INHALATION RT-Q4H PRN 02/27/17 03/07/18 History Inhaler] Albuterol Nebulized [Ventolin 2.5 mg INHALATION RT-QID PRN 02/27/17 03/07/18 History Nebulized] Beclomethasone Dipropionate [Qvar 1 puff INHALATION RT-BID 02/27/17 03/07/18 History 80 mcg] Cetirizine HCl [Zyrtec] 10 mg PO DAILY 02/27/17 03/07/18 History Citalopram Hydrobromide [CeleXA] 20 mg PO DAILY 02/27/17 03/07/18 History Omeprazole [PriLOSEC] 40 mg PO DAILY 02/27/17 03/07/18 History Cholecalciferol [Vitamin D3] 1,000 unit PO DAILY 03/07/18 03/07/18 History Cyclobenzaprine [Flexeril] 10 mg PO BID 03/07/18 03/07/18 History Fluticasone Nasal [place] [Flonase 1 spray EA NOSTRIL DAILY 03/07/18 03/07/18 History Nasal [place]] Olodaterol HCl [Striverdi Respimat] 2 spray INHALATION RT-DAILY 03/07/18 History Allergies Allergy/AdvReac Type Severity Reaction Status Date / Time No Known Allergies Allergy Verified 03/07/18 11:18 Physical Exam Vitals: Vital Signs Temp Pulse Pulse Resp BP BP BP 03/08/18 12:00 96.6 F L 61 16 111/74 03/08/18 08:49 76 16 03/08/18 08:48 96.6 F L 76 16 93/68 03/08/18 06:34 98.8 F 72 18 106/67 03/08/18 04:00 97.9 F 75 18 85/61 03/08/18 00:00 97.7 F 80 18 99/67 03/07/18 22:34 98.0 F 86 17 97/52 03/07/18 21:23 97.8 F 104 H 16 114/84 03/07/18 20:34 114/73 136/84 03/07/18 20:04 88 17 120/82 142/86 03/07/18 20:00 97.9 F 88 18 115/76 03/07/18 19:34 18 133/93 157/103 03/07/18 19:19 86 18 145/105 169/110 03/07/18 19:04 82 18 158/109 174/102 03/07/18 18:49 81 18 158/112 184/109 03/07/18 15:53 91 18 113/85 03/07/18 14:54 78 18 120/85 03/07/18 13:40 101 H 18 138/98 Pulse Ox 03/08/18 12:00 98 03/08/18 08:49 03/08/18 08:48 94 L 03/08/18 06:34 03/08/18 04:00 94 L 03/08/18 00:00 97 03/07/18 22:34 94 L 03/07/18 21:23 95 03/07/18 20:34 03/07/18 20:04 94 L 03/07/18 20:00 95 03/07/18 19:34 98 03/07/18 19:19 96 03/07/18 19:04 98 03/07/18 18:49 03/07/18 15:53 95 03/07/18 14:54 96 03/07/18 13:40 99 Intake and Output 03/07/18 03/08/18 03/08/18 22:59 06:59 14:59 Intake Total 166 250 345 Output Total 600 350 Balance -434 250 -5 Intake: IV 116 Intake, IV Titration 50 250 225 Amount Bivalirudin 250 mg In 50 Sodium Chloride 0.9% 50 ml @ 0 mls/hr IV .[facility] Rx#:[id number] Sodium Chloride 0.9% 1, 250 000 ml @ 100 mls/hr IV . Q10H [facility] Rx#:[id number] Sodium Chloride 0.9% 1, 225 000 ml @ 75 mls/hr IV . [id number] [facility] Rx#:[id number] Oral 120 Output: Urine 600 350 Other: Voiding Method Toilet # Voids 1 1 1 # Bowel Movements 1 Weight 57.7 kg 57.7 kg PHYSICAL EXAMINATION: GENERAL: The patient is alert and oriented x3, not in any acute distress. Well developed, well nourished. HEENT: Pupils are round and equally reacting to light. EOMI. No scleral icterus. No conjunctival pallor. Normocephalic, atraumatic. No pharyngeal erythema. No thyromegaly. CARDIOVASCULAR: S1 and S2 present. No murmurs, rubs, or gallops. PULMONARY: Chest is clear to auscultation, no wheezing or crackles. ABDOMEN: Soft, nontender, nondistended, normoactive bowel sounds. No palpable organomegaly. MUSCULOSKELETAL: No joint swelling or deformity. EXTREMITIES: No cyanosis, clubbing, or pedal edema. NEUROLOGICAL: Gross neurological examination did not reveal any focal deficits. SKIN: No rashes. Results CBC & Chem 7: 03/08/18 05:44 03/08/18 05:44 Labs: Abnormal Lab Results - Last 24 Hours (Table) 03/07/18 03/07/18 03/08/18 Range/Units 19:43 22:16 05:44 Hct 46.8 H (34.0-46.0) % Sodium (137-145) mmol/L AST (14-36) U/L Total Creatine Kinase 277 H 259 H (30-135) U/L CK-MB (CK-2) 11.5 H* 12.0 H* (0.0-2.4) ng/mL Troponin I 3.210 H* 3.390 H* (0.000-0.034) ng/mL Total Protein (6.3-8.2) g/dL Albumin (3.5-5.0) g/dL 03/08/18 Range/Units 05:44 Hct (34.0-46.0) % Sodium 133 L (137-145) mmol/L AST 47 H (14-36) U/L Total Creatine Kinase (30-135) U/L CK-MB (CK-2) (0.0-2.4) ng/mL Troponin I (0.000-0.034) ng/mL Total Protein 5.9 L (6.3-8.2) g/dL Albumin 3.4 L (3.5-5.0) g/dL Thrombosis Risk Factor Assmnt - Choose All That Apply Any of the Below Risk Factors Present?: Yes Each Factor Represents 1 point: Age 41-60 years Other Risk Factors: No Other congenital or acquired thrombophilia - If yes, enter type in comment: No Thrombosis Risk Factor Assessment Total Risk Factor Score: 1 Thrombosis Risk Factor Assessment Level: Low Risk Assessment and Plan Plan: -Acute non-ST elevation microinfarction patient is status post cardiac catheterization and stenting of obtuse marginal branch of left circumflex -Hypertension -Acute systolic dysfunction from myocardial stunning, ischemic cardiomyopathy from myocardial infarction the patient is euvolemic without any volume overload at this time -Hypertension patient is actually hypotensive now amlodipine will be discontinued -Nicotine abuse history: Counseling was provided
[2018-03-08] MEDS: LISINOPRIL 2.5 MG TAB PO SCH (13:29)
[2018-03-08] MEDS: ATORVASTATIN 80 MG TAB PO SCH (20:04)
[2018-03-09 06:28] LABS: Basophils # (A) 0.1 k/uL (0-0.2); Basophils % (A) 1 %; Eosinophils # (A) 0.1 k/uL (0-0.7); Eosinophils % (A) 2 %; HCT 44.9 % (34.0-46.0); Lymphocytes # (A) 2.2 k/uL (1.0-4.8); Lymphocytes % (A) 30 %; MCH 32.3 pg (25.0-35.0); MCHC 33.4 g/dL (31.0-37.0); MCV 96.9 fL (80.0-100.0); Mean Platelet Volume 7.3; Monocytes # (A) 0.6 k/uL (0-1.0); Monocytes % (A) 8 %; Neutrophils # (A) 4.3 k/uL (1.3-7.7); Neutrophils % (A) 58 %; Platelet Count 205 k/uL (150-450); RBC 4.63 m/uL (3.80-5.40); RDW 12.6 % (11.5-15.5); WBC 7.5 k/uL (3.8-10.6)
[2018-03-09 06:42] VITALS: PULSE 58
[2018-03-09] MEDS ORDERED: PRASUGREL 10 MG TAB PO SCH (09:00)
[2018-03-09] MEDS ORDERED: CLOPIDOGREL 75 MG TAB PO SCH (09:00)
[2018-03-09] MEDS: LISINOPRIL 2.5 MG TAB PO SCH (09:53)
[2018-03-09] MEDS: ASPIRIN 325 MG TAB PO SCH (09:53)
[2018-03-09] MEDS: METOPROLOL TARTRATE 25 MG TAB PO SCH (09:53)
[2018-03-09] MEDS: THIAMINE 100 MG TAB PO SCH (09:54)
[2018-03-09 10:21] VITALS: BP 102/62; RESP 17; TEMP 97.6
--- NOTE | 2018-03-09 12:56 | P.PN ---
Subjective Progress Note Date: 03/09/18 This is a pleasant 47-year-old female patient with past medical history significant for hypertension, COPD and smoking. Presented to the emergency department complaining of epigastric discomfort that started the day prior. EKG showed sinus rhythm with nonspecific changes in the inferior leads and T-wave inversion in the inferolateral leads as well as Q waves inferiorly. Cardiac enzymes came back to be elevated with a troponin of 2.310, 3.210 and 3.390. She was recommended to undergo cardiac catheterization which revealed occluded first obtuse marginal branch of the left circumflex for which she underwent successful stenting of the first obtuse marginal branch of left circumflex using 3 drug-eluting stents. She underwent echocardiogram with Doppler study which revealed mild to moderately impaired LV systolic function with an ejection fraction between 40-45%, inferior and posterior hypokinesis as well as mild mitral regurgitation and mild tricuspid regurgitation. She is currently on aspirin 325 mg by mouth daily, Lipitor 80 mg by mouth daily at bedtime, Plavix 75 mg by mouth daily and metoprolol tartrate 25 mg by mouth twice a day. Blood pressure 102/60, heart rate in the 50s. White blood cell count 7.5, hemoglobin 15.0, platelet count 205. Objective - Vital Signs Vital signs: Vital Signs Temp 97.6 F 03/09/18 09:00 Pulse 58 L 03/09/18 09:00 Resp 17 03/09/18 09:00 BP 102/62 03/09/18 09:00 Pulse Ox 97 03/09/18 09:00 Intake & Output 03/08/18 03/09/18 03/09/18 18:59 06:59 18:59 Intake Total 825 560 Output Total 350 Balance 475 560 Weight 57.7 kg 58.7 kg Intake: Intake, IV Titration 225 Amount Sodium Chloride 0.9% 1, 225 000 ml @ 75 mls/hr IV . [id number] [facility] Rx#:[id number] Oral 600 560 Output: Urine 350 Other: Voiding Method Toilet Toilet Toilet # Voids 1 1 # Bowel Movements 1 - Exam PHYSICAL EXAMINATION: HEENT: Head is atraumatic, normocephalic. Pupils equal, round. Neck is supple. There is no elevated jugular venous pressure. HEART EXAMINATION: Heart sounds regular, S1 and S2 normal. No murmur or gallop heard. CHEST EXAMINATION: Lungs reveal diminished air entry bilaterally. No chest wall tenderness is noted on palpation or with deep breathing. ABDOMEN: Soft, nontender. Bowel sounds are heard. No organomegaly noted. EXTREMITIES: Diminished peripheral pulses with no evidence of peripheral edema and no calf tenderness noted. Right femoral puncture site soft with ecchymosis but no signs of hematoma. NEUROLOGIC patient is awake, alert and oriented x3. - Labs CBC & Chem 7: 03/09/18 06:02 03/08/18 05:44 Assessment and Plan Plan: Assessment: #1 non-ST elevation MS #2 status post percutaneous coronary intervention of the first obtuse marginal branch of the left circumflex #3 hypertension #4 significant smoking history #5 ischemic cardiomyopathy with an ejection fraction of 40-45% and inferior hypokinesis as well as posterior hypokinesis Plan Cardiology's perspective, she may be able to be discharged home today. We will make her a follow-up appointment in the office one week postdischarge. We will continue aspirin 81 mg daily, Plavix 75 mg daily, Lipitor 80 mg daily, Zestril 2 -1/2 mg daily, metoprolol 25 mg by mouth twice a day and sublingual nitroglycerin as needed for chest pain. DNP note has been reviewed, I agree with a documented findings and plan of care. Patient was seen and examined.
--- NOTE | 2018-03-09 12:58 | P.DS ---
Providers Date of admission: 03/07/18 13:32 Attending physician: Ethel Gomez Consults: 03/07/18 13:33 Consult Physician Urgent Consulting Provider: Michael Lu Consult Reason/Comments: NSTEMI Do you want consulting provider notified?: Yes 03/07/18 18:49 Consult Physician Routine Consulting Provider: [facility] Consult Reason/Comments: Post Interventional patient Do you want consulting provider notified?: Already Contacted Primary care physician: [facility] Course: patient is found to have non-ST elevation myocardial infarction, underwent cardiac catheterization and stenting of circumflex. Patient had mild depressed ejection fraction echocardiogram that wasn't post cardiac catheterization with 40-40% ejection fraction probably acute systolic dysfunction from a myocardial stunning. Patient is presently doing well mildly hypotensive amlodipine will be discontinued. Patient was started on SARAH inhibitor continue with beta marly and statin dual antiplatelet therapy at this time. 03/09/2018 patient is clinically doing well overnight events PHYSICAL EXAMINATION: GENERAL: The patient is alert and oriented x3, not in any acute distress. Well developed, well nourished. HEENT: Pupils are round and equally reacting to light. EOMI. No scleral icterus. No conjunctival pallor. Normocephalic, atraumatic. No pharyngeal erythema. No thyromegaly. CARDIOVASCULAR: S1 and S2 present. No murmurs, rubs, or gallops. PULMONARY: Chest is clear to auscultation, no wheezing or crackles. ABDOMEN: Soft, nontender, nondistended, normoactive bowel sounds. No palpable organomegaly. MUSCULOSKELETAL: No joint swelling or deformity. EXTREMITIES: No cyanosis, clubbing, or pedal edema. NEUROLOGICAL: Gross neurological examination did not reveal any focal deficits. SKIN: No rashes. Assessment and Plan Plan: -Acute non-ST elevation microinfarction patient is status post cardiac catheterization and stenting of obtuse marginal branch of left circumflex -Hypertension -Acute systolic dysfunction from myocardial stunning, ischemic cardiomyopathy from myocardial infarction the patient is euvolemic without any volume overload at this time -Hypertension patient is actually hypotensive now amlodipine was discontinued -Nicotine abuse history: Counseling was provided Patient Condition at Discharge: Stable Plan - Discharge Summary Discharge Rx Participant: Yes New Discharge Prescriptions: New Aspirin 325 mg PO DAILY #30 tab Atorvastatin [Lipitor] 80 mg PO HS #30 tab Clopidogrel [Plavix] 75 mg PO DAILY #30 tab Lisinopril [Zestril] 2.5 mg PO DAILY #30 tab Metoprolol Tartrate [Lopressor] 25 mg PO BID #60 tab Nitroglycerin Sl Tabs [Nitrostat] 0.4 mg SUBLINGUAL Q5M PRN #25 tab PRN Reason: Chest Pain Discontinued amLODIPine [Norvasc] 5 mg PO DAILY No Action Cetirizine HCl [Zyrtec] 10 mg PO DAILY Omeprazole [PriLOSEC] 40 mg PO DAILY Albuterol Nebulized [Ventolin Nebulized] 2.5 mg INHALATION RT-QID PRN PRN Reason: sob Citalopram Hydrobromide [CeleXA] 20 mg PO DAILY Beclomethasone Dipropionate [Qvar 80 mcg] 1 puff INHALATION RT-BID Albuterol Inhaler [Ventolin Hfa Inhaler] 2 puff INHALATION RT-Q4H PRN PRN Reason: Shortness Of Breath Olodaterol HCl [Striverdi Respimat] 2 spray INHALATION RT-DAILY Fluticasone Nasal [place] [Flonase Nasal [place]] 1 spray EA NOSTRIL DAILY Cyclobenzaprine [Flexeril] 10 mg PO BID Cholecalciferol [Vitamin D3] 1,000 unit PO DAILY Discharge Medication List Albuterol Inhaler [Ventolin Hfa Inhaler] 2 puff INHALATION RT-Q4H PRN 02/27/17 [ History] Albuterol Nebulized [Ventolin Nebulized] 2.5 mg INHALATION RT-QID PRN 02/27/17 [ History] Beclomethasone Dipropionate [Qvar 80 mcg] 1 puff INHALATION RT-BID 02/27/17 [ History] Cetirizine HCl [Zyrtec] 10 mg PO DAILY 02/27/17 [History] Citalopram Hydrobromide [CeleXA] 20 mg PO DAILY 02/27/17 [History] Omeprazole [PriLOSEC] 40 mg PO DAILY 02/27/17 [History] Cholecalciferol [Vitamin D3] 1,000 unit PO DAILY 03/07/18 [History] Cyclobenzaprine [Flexeril] 10 mg PO BID 03/07/18 [History] Fluticasone Nasal [place] [Flonase Nasal [place]] 1 spray EA NOSTRIL DAILY 03/07/18 [History] Olodaterol HCl [Striverdi Respimat] 2 spray INHALATION RT-DAILY 03/07/18 [ History] Aspirin 325 mg PO DAILY #30 tab 03/09/18 [Rx] Atorvastatin [Lipitor] 80 mg PO HS #30 tab 03/09/18 [Rx] Clopidogrel [Plavix] 75 mg PO DAILY #30 tab 03/09/18 [Rx] Lisinopril [Zestril] 2.5 mg PO DAILY #30 tab 03/09/18 [Rx] Metoprolol Tartrate [Lopressor] 25 mg PO BID #60 tab 03/09/18 [Rx] Nitroglycerin Sl Tabs [Nitrostat] 0.4 mg SUBLINGUAL Q5M PRN #25 tab 03/09/18 [Rx ] Follow up Appointment(s)/Referral(s): Michael Lu MD [STAFF PHYSICIAN] - 03/19/18 3:00 pm (MONDAY) Willie Castro MD [Primary Care Provider] - 03/15/18 11:30 am (MONDAY) Patient Instructions/Handouts: *Surgery [facility] - After Heart Catheterization - Coin Machine Supervisor Instructions, Left Heart Catheterization (DC), Heart Healthy Diet (DC) Discharge Disposition: HOME SELF-CARE
== END 2018-03-09 11:59 | disposition home or self-care (01) | DRG 246 ==
LOC: EC 10:15 → 6SEL 13:32
PROVIDERS: ADMIT Hospitalist; ATTEND Hospitalist
PROC: 027036Z Dilation of Coronary Artery, One Artery with Three Drug-eluting Intraluminal Devices, Percutaneous Approach (ICD-10-PCS; principal; 2018-03-07 16:59)
PROC: B2151ZZ Fluoroscopy of Left Heart using Low Osmolar Contrast (ICD-10-PCS; principal; 2018-03-07 16:59)
PROC: 4A023N7 Measurement of Cardiac Sampling and Pressure, Left Heart, Percutaneous Approach (ICD-10-PCS; principal; 2018-03-07 16:59)
PROC: B2111ZZ Fluoroscopy of Multiple Coronary Arteries using Low Osmolar Contrast (ICD-10-PCS; principal; 2018-03-07 16:59)
DX: I21.4 Non-ST elevation (NSTEMI) myocardial infarction (principal); I50.21 Acute systolic (congestive) heart failure; E87.1 Hypo-osmolality and hyponatremia; F17.200 Nicotine dependence, unspecified, uncomplicated; F40.240 Claustrophobia; F41.0 Panic disorder [episodic paroxysmal anxiety]; I08.1 Rheumatic disorders of both mitral and tricuspid valves; I25.5 Ischemic cardiomyopathy; I73.00 Raynaud's syndrome without gangrene; J44.9 Chronic obstructive pulmonary disease, unspecified; K21.9 Gastro-esophageal reflux disease without esophagitis; Z79.02 Long term (current) use of antithrombotics/antiplatelets; Z79.82 Long term (current) use of aspirin; Z79.899 Other long term (current) drug therapy; Z95.5 Presence of coronary angioplasty implant and graft; Z87.81 Personal history of (healed) traumatic fracture; Z79.51 Long term (current) use of inhaled steroids; Z71.6 Tobacco abuse counseling; I11.0 Hypertensive heart disease with heart failure; I95.9 Hypotension, unspecified
CPT/HCPCS: 36415; 71046; 74018; 80053; 81001; 82150; 82550; 82553; 83605; 83690; 84484; 85025; 85610; 85730; 93005; 93306; 93458; 96361; 96365; 96366; 96368; 96372; 96375; 96376; 99291

== ENCOUNTER → 2021-11-09 | Outpatient (CLI) | payer OTHER ==
[~2021-11-09] MED LIST changes: -LACTATED RINGERS 1,000 ML IV SCH; +REGADENOSON 0.4 MG/5 ML SYRINGE IV PRN
--- NOTE | 2021-11-09 15:00 | EST ---
EXERCISE STRESS AGE: 51 SEX: F HT: 5'5" WT: 145 lbs. PROTOCOL: Lexiscan STAGE: NA DURATION OF EXERCISE: HEART RATE REST: 68 BLOOD PRESSURE REST: 129/102 MAXIMUM HEART RATE ACHIEVED: 108 MAXIMUM BLOOD PRESSURE: 140/91 85% MPHR: 143 100% MPHR: 168 METS: NA INDICATIONS: Hypertension. CLINICAL INFORMATION: Baseline EKG shows sinus rhythm, normal axis, normal intervals. Patient was given intravenous Lexiscan as per protocol and did not have chest pain or diagnostic ST- segment depression. CONCLUSIONS: 1. Negative stress test by EKG criteria. 2. Cardiolite portion of the stress test will be reported separately. MMODL / IJN: [id number] /
--- NOTE | 2021-11-09 15:43 | NM ---
EXAMINATION TYPE: NM stress lexiscan cardiolite DATE OF EXAM: 11/09/2021 COMPARISON: NONE HISTORY: Hypercholesteremia and family history of heart attack along with COPD and tobacco use along with hypertension and an prior personal heart attack 2018 presents with prior angioplasty. TECHNIQUE: After the intravenous administration of 10.17 mCi Tc 99m Sestamibi - Cardiolite resting S PECT images acquired 45 minutes post injection. The patient received 0.4mg Lexiscan, 24.1 mCi Tc 99m Sestamibi - Stress images obtained [address] injection FINDINGS: Review of stress and rest SPECT images demonstrates decreased radiotracer uptake involving the latera l wall on stress images versus rest images in short axis and horizontal long axis views however there is an artifact from adjacent uptake in the right ventricular wall. Exam is essentially nondiagnostic at evaluating this level. Gated analysis shows overall ejection fraction of greater than 70 %. IMPRESSION: Nondiagnostic evaluation of the lateral left ventricular wall extending towards the infe rior wall. No scintigraphic evidence for reversible ischemia otherwise. Need to further investigate for direct catheter angiogram should be based on degree of clinical suspicion.
== END | disposition home or self-care (01) ==
LOC: RADNMMAIN 08:19
PROVIDERS: ATTEND Internal Medicine Interventional Cardiology
DX: I10 Essential (primary) hypertension (principal)
CPT/HCPCS: 93017; 78452; A9500; J2785

== ENCOUNTER 2025-02-10 13:49 | Emergency (ER) | payer MEDICARE, OTHER ==
[2025-02-10 14:23] VITALS: RESP 18; TEMP 97.9
--- NOTE | 2025-02-10 14:44 | ED ---
General Adult HPI - General Chief complaint: Extremity Problem,Nontraumatic Stated complaint: R foot issue Time Seen by Provider: 02/10/25 14:01 Source: patient, family, RN notes reviewed Mode of arrival: wheelchair Limitations: no limitations - History of Present Illness Initial comments: 54-year-old female presenting to emergency room with referral from urgent care for concerns of right foot swelling and pain over the past 3 days. Patient [place] and after noticed swelling of her foot that is progressed and difficulty with bearing weight and ambulation. Patient denies overt injuries or falls. She denies history of DVT, PE, recent travel or surgeries, calf pain or swelling, or palpitations, difficulty in breathing. She denies fevers, chills, nausea, vomiting. Patient states that she has having difficulty with ambulation due to the pain and having a hard time moving around her house appropriately due to this. - Related Data Home Medications Medication Instructions Recorded Confirmed Albuterol Inhaler [Ventolin Hfa 2 puff INHALATION RT-Q4H PRN 02/27/17 03/07/18 Inhaler] Albuterol Nebulized [Ventolin 2.5 mg INHALATION RT-QID PRN 02/27/17 03/07/18 Nebulized] Beclomethasone Dipropionate [Qvar 1 puff INHALATION RT-BID 02/27/17 03/07/18 80 mcg] Cetirizine HCl [Zyrtec] 10 mg PO DAILY 02/27/17 03/07/18 Citalopram Hydrobromide [CeleXA] 20 mg PO DAILY 02/27/17 03/07/18 Omeprazole [PriLOSEC] 40 mg PO DAILY 02/27/17 03/07/18 Cholecalciferol [Vitamin D3] 1,000 unit PO DAILY 03/07/18 03/07/18 Cyclobenzaprine [Flexeril] 10 mg PO BID 03/07/18 03/07/18 Fluticasone Nasal [place] [Flonase 1 spray EA NOSTRIL DAILY 03/07/18 03/07/18 Nasal [place]] Olodaterol HCl [Striverdi Respimat] 2 spray INHALATION RT-DAILY 03/07/18 03/07/18 Previous Rx's Medication Instructions Recorded Aspirin 325 mg PO DAILY #30 tab 07/20/18 Atorvastatin [Lipitor] 80 mg PO HS #30 tab 03/09/18 Clopidogrel [Plavix] 75 mg PO DAILY #30 tab 03/09/18 Metoprolol Tartrate [Lopressor] 25 mg PO BID #60 tab 03/09/18 Nitroglycerin Sl Tabs [Nitrostat] 0.4 mg SUBLINGUAL Q5M PRN #25 tab 03/09/18 lisinopriL [Zestril] 2.5 mg PO DAILY #30 tab 03/09/18 Cephalexin [Keflex] 500 mg PO Q6HR #40 cap 02/10/25 Sulfamethox-Tmp 800-160Mg [Bactrim 1 each PO Q12HR #20 tab 02/10/25 Ds] Allergies Allergy/AdvReac Type Severity Reaction Status Date / Time No Known Allergies Allergy Verified 02/10/25 14:22 Review of Systems ROS Statement: Those systems with pertinent positive or pertinent negative responses have been documented in the HPI. ROS Other: All systems not noted in ROS Statement are negative. Past Medical History Past Medical History: COPD, GERD/Reflux, Hypertension Additional Past Medical History / Comment(s): hiatal hernia, raynauds syndrome, past broken lt leg(has jorje and screws), past spontaneous pneumthorax/chest tube at [facility] History of Any Multi-Drug Resistant Organisms: None Reported Past Surgical History: Orthopedic Surgery, Tubal Ligation Additional Past Surgical History / Comment(s): jorje and screws left leg, egd w/ bx Past Anesthesia/Blood Transfusion Reactions: Motion Sickness Additional Past Anesthesia/Blood Transfusion Reaction / Comment(s): claustrophobia Past Psychological History: Anxiety, Depression, Panic Disorder Smoking Status: Current every day smoker Past Alcohol Use History: Daily Past Drug Use History: None Reported - Past Family History Father Family Medical History: Cancer General Exam Limitations: no limitations General appearance: alert, in no apparent distress Respiratory exam: Present: normal lung sounds bilaterally. Absent: respiratory distress, wheezes, rales, rhonchi, stridor Cardiovascular Exam: Present: regular rate, normal rhythm, normal heart sounds. Absent: systolic murmur, diastolic murmur, rubs, gallop, clicks GI/Abdominal exam: Present: soft, normal bowel sounds. Absent: distended, tenderness, guarding, rebound, rigid Right Foot/Toe exam: Present: tenderness, swelling, erythema. Absent: laceration, deformity, crepitus, dislocation Neurovascular tendon exam: Present: no vascular compromise Gait: observed and limited by pain Back exam: Present: normal inspection Skin exam: Present: warm, dry, intact, normal color. Absent: rash Course Vital Signs 02/10/25 14:18 Temperature 97.9 F Pulse Rate 89 Respiratory 18 Rate Blood Pressure 100/69 O2 Sat by Pulse 98 Oximetry Medical Decision Making - Medical Decision Making Was pt. sent in by a medical professional or institution (DAGOBERTO Lind, CASH ROOM CLERK, urgent care, hospital, or half-way...) When possible be specific @ -Advised by urgent care to report to the emergency department for further evaluation of right foot swelling and pain. Did you speak to anyone other than the patient for history (EMS, parent, family, police, friend...)? What history was obtained from this source @ -No Did you review nursing and triage notes (agree or disagree)? Why? @ -I reviewed and agree with nursing and triage notes Were old charts reviewed (outside hosp., previous admission, EMS record, old EKG, old radiological studies, urgent care reports/EKG's, half-way records)? Report findings @ -No old charts were reviewed Differential Diagnosis (chest pain, altered mental status, abdominal pain women, abdominal pain men, vaginal bleeding, weakness, fever, dyspnea, syncope, headache, dizziness, GI bleed, back pain, seizure, CVA, palpatations, mental health, musculoskeletal)? @ -Differential Musculoskeletal Muscular strain, contusion, ligament sprain, fracture, arthritis, septic arthritis, bursitis, cellulitis, muscle spasm, nerve compression, DVT, arterial occlusion, herpes zoster, electrolyte abnormality, tumor.... This is not meant to be in all inclusive list EKG interpreted by me (3pts min.). @ -None X-rays interpreted by me (1pt min.). @ -X-ray of the right foot reveals no acute osseous abnormality CT interpreted by me (1pt min.). @ -None done U/S interpreted by me (1pt. min.). @ -Ultrasound of the right lower extremity has no evidence of DVT. What testing was considered but not performed or refused? (CT, X-rays, U/S, labs)? Why? @ -None What meds were considered but not given or refused? Why? @ -None Did you discuss the management of the patient with other professionals (professionals i.e. DrJorge, PA, CASH ROOM CLERK, lab, RT, psych nurse, manager social responsibility, bodily injury adjuster, teacher, guest relation officer, director case management)? Give summary @ -No Was smoking cessation discussed for >3mins.? @ -No Was critical care preformed (if so, how long)? @ -No Were there social determinants of health that impacted care today? How? (Homelessness, low income, unemployed, alcoholism, drug addiction, transportation, low edu. Level, literacy, decrease access to med. care, snf, rehab)? @ -No Was there de-escalation of care discussed even if they declined (Discuss DNR or withdrawal of care, Hospice)? DNR status @ -No What co-morbidities impacted this encounter? (DM, HTN, Smoking, COPD, CAD, Cancer, CVA, ARF, Chemo, Hep., AIDS, mental health diagnosis, sleep apnea, morbid obesity)? @ -None Was patient admitted / discharged? Hospital course, mention meds given and route, prescriptions, significant lab abnormalities, going to OR and other pertinent info. @ -Discharge. 54-year-old female presenting to emergency room with referral from urgent care for concerns of right lower extremity foot erythema and pain. Patient's right foot is erythematous and edematous and tender to the touch with redness moving proximally to the ankle. Negative Homans' sign on examination with no calf tenderness. There is a 1+ palpable pulse. Patient has strong plantar dorsiflexion however her gait is unsteady due to the pain. X-ray imaging of the right foot reveals no acute osseous abnormality. Ultrasound imaging no evidence of DVT. With concern for infectious process and cellulitis patient will be treated with outpatient prescription of Keflex and Bactrim and instructed to follow-up with primary care provider after antibiotics are completed. Return parameters have discussed. Patient has difficulty with ambulation due to the infection of her foot and therefore is a candidate for a walker to aid with ADLs at home. Prescription is provided for patient to receive walker. Case discussed with my attending Dr. Magallon Undiagnosed new problem with uncertain prognosis? @ -No Drug Therapy requiring intensive monitoring for toxicity (Heparin, Nitro, Insul in, Cardizem)? @ -No Were any procedures done? @ -No Diagnosis/symptom? @ -Cellulitis Acute, or Chronic, or Acute on Chronic? @ -acute Uncomplicated (without systemic symptoms) or Complicated (systemic symptoms)? @ -uncomplicated Side effects of treatment? @ -No Exacerbation, Progression, or Severe Exacerbation? @ -No Poses a threat to life or bodily function? How? (Chest pain, [place], [place], pneumonia, PE, COPD, DKA, ARF, appy, cholecystitis, CVA, Diverticulitis, Homicidal, Suicidal, threat to staff... and all critical care pts) @ -No Disposition Clinical Impression: Cellulitis of right foot, COPD (chronic obstructive pulmonary disease) Disposition: HOME SELF-CARE Condition: Good Instructions (If sedation given, give patient instructions): Cellulitis (ED) Additional Instructions: Please return to the Emergency Department if symptoms worsen or any other concerns. Prescriptions: Sulfamethox-Tmp 800-160Mg [Bactrim Ds] 1 each PO Q12HR #20 tab Cephalexin [Keflex] 500 mg PO Q6HR #40 cap Is patient prescribed a controlled substance at d/c from ED?: No Referrals: Ingrid Harley MD [Primary Care Provider] - 1-2 days Time of Disposition: 15:53
[2025-02-10] MEDS: ACETAMINOPHEN TAB 325 MG TAB PO STA (15:39)
--- NOTE | 2025-02-10 15:44 | XR ---
EXAMINATION TYPE: XR foot complete RT DATE OF EXAM: 02/10/2025 2:53 PM COMPARISON: None. CLINICAL INDICATION: Female, 54 years old with history of pain, swelling, pain TECHNIQUE: 3 view(s) obtained. FINDINGS: No acute fracture or dislocation evident. Joint spaces are preserved. Soft tissues are normal. Follow up exams can be performed 7-10 days from acute trauma for continued pain. IMPRESSION: 1. No acute osseous abnormality right foot [facility], , 02/10/2025 3:42 PM
--- NOTE | 2025-02-10 15:48 | US ---
EXAMINATION TYPE: US venous doppler duplex LE RT DATE OF EXAM: 02/10/2025 3:30 PM COMPARISON: NONE CLINICAL INDICATION: Female, 54 years old with history of pain, swelling; Right leg pain and swelling , no history of DVT and not on blood thinners, Pain TECHNIQUE: The lower extremity deep venous system is examined utilizing real time linear array sonog shy with graded compression, color doppler sonography, and spectral doppler. SIDE PERFORMED: Right FINDINGS: VESSELS IMAGED: Common Femoral Vein Deep Femoral Vein Greater Saphenous Vein * Femoral Vein Popliteal Vein Small Saphenous Vein * Proximal Calf Veins (* superficial vessels) Right Leg: Negative for DVT, Color Doppler imaging shows patency of the vessels. Spectral waveforms are within normal limits. IMPRESSION: Right lower extremity ultrasound negative for deep venous thrombosis. [facility], , 02/10/2025 3:45 PM
[2025-02-10 16:23] VITALS: BP 130/82; PULSE 82
== END 2025-02-10 16:51 | disposition home or self-care (01) ==
LOC: EC 13:49
DX: L03.115 Cellulitis of right lower limb (principal); J44.9 Chronic obstructive pulmonary disease, unspecified; F17.200 Nicotine dependence, unspecified, uncomplicated
CPT/HCPCS: 99284